=== PATIENT | female | born 1965 ===

== ENCOUNTER 2018-04-18 07:53 | Inpatient (IN) | payer BC ==
[~2018-04-18] VITALS: Ht 160 cm; Wt 54.4 kg
[2018-04-18] VITALS (9 sets, daily range): BP systolic 106–135; BP diastolic 65–82
[~2018-04-18 07:53] MED LIST: ceFAZolin 1gm in D5W 55ml IVP ONE; celeBREX 200mg Cap **SURGERY PATIENTS ONLY ORAL ONE; oxyCONTIN 20mg tab ORAL ONE
[2018-04-18] MEDS ORDERED: GABAPENTIN300 MG ORAL (08:47)
[2018-04-18] MEDS ORDERED: BLISOVI FE 1-21 EACH PO (08:47)
[2018-04-18] MEDS ORDERED: LEXAPRO10 MG ORAL (08:47)
[2018-04-18] MEDS ORDERED: celeBREX 200mg Cap **SURGERY PATIENTS ONLY ORAL ONE (09:28)
[2018-04-18] MEDS ORDERED: oxyCONTIN 20mg tab ORAL ONE (09:30)
--- NOTE | 2018-04-18 11:10 | Operative Note - PDOC ---
Operative Note Operative Note Pre-op Diagnosis: right knee medial compartment oa Procedure: see op report Post-op Diagnosis: same as pre-op plus Operative Findings: consistent w/pre-op dx studies Anesthesia: regional Specimen: none Complications: none Condition: stable Estimated Blood Loss: none Implant(s) used?: Yes Serg Rosado MD Apr 18, 2018 11:10
--- NOTE | 2018-04-18 11:10 | Pre-Procedure Note/Attestation ---
Pre-Procedure Note/Attestation Complete Prior to Procedure Planned Procedure: right Procedure Narrative: knee uka Indications for Procedure Pre-Operative Diagnosis: right knee medial compartment oa Attestation I attest that I discussed the nature of the procedure; its benefits; risks and complications; and alternatives (and the risks and benefits of such alternatives ), prior to the procedure, with the patient (or the patient's legal enrollment representative). I attest that, if there was a reasonable possibility of needing a blood transfusion, the patient (or the patient's legal enrollment representative) was given the [facility] standardized written summary, pursuant to the Fern[place] Ortiz Blood Safety Act ([place] Health and Safety Code # 1645, as amended). I attest that I re-evaluated the patient just prior to the surgery and that there has been no change in the patient's H&P, except as documented below: Serg Rosado MD Apr 18, 2018 11:10
[2018-04-18] MEDS ORDERED: oxyCODONE 5mg IR tab ORAL PRN (11:15)
[2018-04-18] MEDS ORDERED: Morphine Sulfate 2mg/ml Inj IVP PRN ×2 (11:15)
[2018-04-18] MEDS ORDERED: Milk of Magnesia 30ml Ud ORAL PRN (11:15)
[2018-04-18] MEDS: Acetaminophen 500mg (ES) tab ORAL SCH ×2 (13:00→21:46)
[2018-04-18] MEDS: Docusate 100mg cap ORAL SCH ×2 (13:00→21:45)
[2018-04-18] MEDS ORDERED: Ropivacaine 5mg/ml Vial 30ml INJ ONE (14:24)
[2018-04-18] MEDS ORDERED: Propofol 200mg/20ml IV ONE (14:25)
[2018-04-18] MEDS ORDERED: Lidocaine 1% MPF 10mg/ml 5ml ONE (14:25)
[2018-04-18] MEDS ORDERED: fentaNYL 100 mcg/2 mL IV ONE (14:34)
[2018-04-18] MEDS ORDERED: Midazolam 2mg/2ml Inj ONE (14:35)
[2018-04-18] MEDS ORDERED: Morphine Sulfate PF 10 ML ONE (14:43)
[2018-04-18] MEDS ORDERED: Kenalog-40 1ml Vial ONE (14:43)
[2018-04-18] MEDS ORDERED: EPINEPHrine 1mg/1ml Amp ONE (14:43)
[2018-04-18] MEDS ORDERED: Bupivacaine 0.25% Inj 30ml INJ ONE (14:44)
[2018-04-18] MEDS ORDERED: Bacitracin 50000 Units Vial ONE (14:44)
[2018-04-18] MEDS ORDERED: Ketorolac 30mg Inj ONE ×2 (14:44→16:39)
[2018-04-18] MEDS ORDERED: NeoSporin Gu Irrig 1ml Amp IRRIG ONE (14:44)
[2018-04-18] MEDS ORDERED: LR 1000ml ONE (15:00)
[2018-04-18] MEDS ORDERED: Sterile Water Irrig 1000ml IRRIG ONE (15:00)
[2018-04-18] MEDS ORDERED: NS Irrig 2000ml IRRIG ONE (15:00)
[2018-04-18] MEDS ORDERED: NS Irrig 1000ml ONE (15:00)
[2018-04-18] MEDS ORDERED: Duramorph PF 10mg/10ml amp IV ONE (15:28)
[2018-04-18] MEDS ORDERED: LR 1000ml 1,000 ML IVLG SCH (16:24)
--- NOTE | 2018-04-18 16:24 | Anethesia Preoperative Eval ---
Anesthesia Pre-op PMH/ROS General Date of Evaluation: Apr 18, 2018 Time of Evaluation: 14:45 Anesthesiologist: Bruce ASA Score: ASA 2 Mallampati Score Class I : Soft palate, uvula, fauces, pillars visible Class II: Soft palate, uvula, fauces visible Class III: Soft palate, base of uvula visible Class IV: Only hard plate visible Mallampati Classification: Class II Surgeon: Alonzo Diagnosis: R knee DJD Surgical Procedure: R knee arthroplasty Anesthesia History: none Social History: current smoker Family History: no anesthesia problems Allergies: Coded Allergies: SCALLOPS (Verified Adverse Reaction, Severe, "throat closses up", 04/17/18) Medications: see eMAR Past Medical History Cardiovascular: Denies: HTN, CAD, [place], valve dz, arrhythmia, other Pulmonary: Denies: asthma, COPD, OFELIA, other Gastrointestinal/Genitourinary: Reports: GERD - mild; Denies: CRI, ESRD, other Neurologic/Psychiatric: Reports: depression/anxiety; Denies: dementia, CVA, TIA, other Endocrine: Denies: DM, hypothyroidism, steroids, other HEENT: Denies: cataract (L), cataract (R), glaucoma, MOHEGAN (L), MOHEGAN (R), other Hematology/Immune: Denies: anemia, DVT, bleeding disorder, other Musculoskeletal/Integumentary: Denies: OA, RA, DJD, DDD, edema, other PMH Narrative: as above PSxH Narrative: ACL repair Anesthesia Pre-op Phys. Exam Physician Exam Last Vital Signs Date Time Temp Pulse Resp B/P (MAP) Pulse Ox O2 Delivery O2 Flow Rate FiO2 04/18/18 09:10 98.6 76 20 109/76 95 Room Air 98.6 Constitutional: NAD Neurologic: CN 2-12 intact Cardiovascular: no M/R/G Respiratory: CTA Gastrointestinal: S/NT/ND Airway Exam Mallampati Score: Class II MO: full Neck: flexible ROM: full Teeth: intact Dentures: no upper, no lower Anesthesia Pre-op A/P Labs See chart Studies Pre-op Studies: EKG - NSR Risk Assessment & Plan Assessment: ASA 2 Plan: SAB vs GA Femoral nerve block for postop pain control Status Change Before Surgery: No Pre-Antibiotics Drug: Ancef 1gr. Given Within 1 Hr of Incision: Yes Time Given: 15:58 Joseph Barrera MD Apr 18, 2018 16:24
[2018-04-18] MEDS ORDERED: DiphenhydrAMINE 50mg/ml Inj IVP PRN (16:30)
[2018-04-18] MEDS ORDERED: Tranexamic Acid 1,000 MG in NS 65 ML IVPB SCH (16:30)
[2018-04-18] MEDS ORDERED: Midazolam 2mg/2ml Inj IVP PRN (16:30)
--- NOTE | 2018-04-18 17:27 | Immediate Post-Op Evaluation ---
Immediate Post-Op Evalulation Immediate Post-Op Evalulation Procedure: R knee unicompartmental arthroplasty Date of Evaluation: Apr 18, 2018 Time of Evaluation: 17:26 IV Fluids: 1000 Blood Products: none Estimated Blood Loss: 50 Urinary Output: 150 Blood Pressure Systolic: 136 Blood Pressure Diastolic: 75 Pulse Rate: 104 Respiratory Rate: 22 O2 Sat by Pulse Oximetry: 98 Temperature (Fahrenheit): 97.6 Pain Score (1-10): 2 Nausea: No Vomiting: No Complications none Patient Status: awake, patent, none Hydration Status: adequate Joseph Barrera MD Apr 18, 2018 17:27
[2018-04-18] MEDS: Meperidine 50mg/ml Inj(FOR RIGORS ONLY) IV PRN ×2 (17:35→18:15)
--- NOTE | 2018-04-18 19:00 | Diagnostic Imaging Report ---
EXAM: XR Right Knee, 3 views CLINICAL HISTORY: POST-OP TECHNIQUE: Three views of the right knee. COMPARISON: No relevant prior studies available. FINDINGS: Bones/joints: Expected postoperative findings after right medial compartment total knee arthroplasty. No acute fracture. No dislocation. Soft tissues: Knee joint air, soft tissue swelling, and irregularity consistent with operative intervention. Other findings: No immediate complication. IMPRESSION: 1. Expected postoperative findings after right medial compartment total knee arthroplasty. 2. No immediate complication.
--- NOTE | 2018-04-18 21:38 | 48 Hour Post Anesthesia Eval ---
Post Anesthesia Evaluation Procedure: R knee unicompartmental arthroplasty Date of Evaluation: Apr 18, 2018 Time of Evaluation: 09:40 Blood Pressure Systolic: 114 0: 65 Pulse Rate: 89 Respiratory Rate: 20 Temperature (Fahrenheit): 97.3 O2 Sat by Pulse Oximetry: 98 Airway: patent Nausea: No Vomiting: No Pain Intensity: 4 Hydration Status: adequate Cardiopulmonary Status: Stable Mental Status/LOC: patient returned to baseline Follow-up Care/Observations: 0 Post-Anesthesia Complications: 0 Follow-up care needed: N/A Tristan Henry MD Apr 18, 2018 21:38
[2018-04-18] MEDS: D5 1/2NS w/KCl 20mEq 1,000 ML IV SCH (21:46)
[2018-04-18] MEDS: ceFAZolin 2gm/50ml Premix 50 ML IV SCH (23:57)
[2018-04-19] VITALS: BP 126/85
[2018-04-19] MEDS ORDERED: ceFAZolin sod 2 GM in D5W 110 ML IV SCH ×2
--- NOTE | 2018-04-19 00:15 | Operative Note - Dictated ---
DATE OF OPERATION: 04/18/2018 NOTE: POOR AUDIO PREOPERATIVE DIAGNOSIS: Right knee medial compartment end-stage osteoarthritis secondary to varus deformity. POSTOPERATIVE DIAGNOSIS: Right knee medial compartment end-stage osteoarthritis secondary to varus deformity. PROCEDURES: Right partial knee replacement (medial compartment). SURGEON: Serg Rosado M.D. ANESTHESIA: Femoral adductor with MAC. INDICATION FOR PROCEDURE: The patient is a pleasant female, who has had progressive varus deformity and end-stage medial compartment joint arthrosis. She failed conservative treatment and elected to undergo right partial knee replacement. Risks, limitations, expectations, and complications of the procedure were discussed in detail. All questions addressed. DESCRIPTION OF PROCEDURE: After informed consent was obtained, the patient was brought to the operative room and placed supine under femoral adductor block. A spinal anesthetic was placed. Hart catheter was placed. Ancef was administered. Time-out was performed. Right leg was prepped and draped in a sterile manner. A arthrotomy was performed. Distal femur was well visualized. A tibial cutting guide was then placed and proximal tibia was then resected. At this point, the knee was balanced in flexion and extension, and the distal femur was then resected. Once that was done, a sizing guide was placed and it seemed like pretty well. The chamfer cuts were then made. At this point, with a 1 mm tibial base plate was selected and placed. The cement was hard. A 9 mm was selected. Knee came out to full extension, good stability, full extension, 10 degrees of flexion and 90 degrees of flexion. Slight laxity in flexion extension. adequate size. Tibial insert was placed. Arthrotomy site was closed with #1 Vicryl suture and 2-0 Vicryl suture. The subcutaneous tissue was closed with 2-0 Vicryl suture. Skin was closed using Monocryl. Steri-Strips and a sterile dressing were applied. The patient was awoken and taken to recovery room with stable vital signs. ESTIMATED BLOOD LOSS: None. COMPLICATIONS: None. SPECIMENS: Good bone cuts. IMPLANTS: Include size 1 femoral component, size 1 tibial component, 9 mm tibial tray. Serg Rosado M.D. DR: BRETT JOB#: [id number] CC:
[2018-04-19 04:00] VITALS: BP 113/72
[2018-04-19 08:00] VITALS: BP 113/67
[2018-04-19] MEDS: ceFAZolin 2gm/50ml Premix 50 ML IV SCH (08:13)
[2018-04-19] MEDS: Docusate 100mg cap ORAL SCH ×2 (08:14→12:37)
[2018-04-19] MEDS: Acetaminophen 500mg (ES) tab ORAL SCH ×2 (08:15→12:38)
[2018-04-19] MEDS ORDERED: celeBREX 200mg Cap **SURGERY PATIENTS ONLY ORAL SCH (09:00)
[2018-04-19] MEDS: D5 1/2NS w/KCl 20mEq 1,000 ML IV SCH (10:08)
[2018-04-19 12:00] VITALS: BP 114/72
[2018-04-19] MEDS ORDERED: TRAMADOL HCL50 MG ORAL (14:19)
[2018-04-19] MEDS ORDERED: NEURONTIN100 MG ORAL (14:20)
[2018-04-19] MEDS ORDERED: ASPIRIN325 MG ORAL (14:21)
[2018-04-19] MEDS ORDERED: NAPROXEN250 MG ORAL (14:24)
--- NOTE | 2018-04-21 12:55 | Discharge Summary ---
Discharge Summary Hospital Course Date of Admission Apr 18, 2018 at 07:53 Date of Discharge Apr 19, 2018 at 15:30 Admitting Diagnosis Right knee end-stage osteoarthritis Reason for Hospitalization: Elective surgery HPI Daja Hooker is a 52 year old female who was admitted on Apr 18, 2018 at 07: 53 for Right knee end-stage osteoarthritis due to varus deformity. Patient admitted for elective surgery Procedures s/p 04/18/[address] Rosado Right partial knee replacement (medial compartment). Hospital Course s/p surgery Neurovascularly intact Dressing clean, dry and intact Pain management, pain addressed and controlled Ambulated with PT, fall precautions Incentive spirometry , while in the bed Initially IV fluids , dc when tolerated diet able to tolerate diet, antiemetics as needed F/c dc, voided freely w/out difficulties Bowel regimen instituted Discharge home with outpatient follow-up wit surgeon FINAL DIAGNOSES: Right knee medial compartment end-stage osteoarthritis secondary to varus deformity. s/p Right partial knee replacement (medial compartment). Discharge Medications Continued Medications: Aspirin* (Aspirin*) 325 Mg Tablet 325 MG ORAL DAILY for 42 Days, #42 TAB (This prescription has been renewed) Gabapentin* (Neurontin*) 100 Mg Capsule 100 MG ORAL THREE TIMES A DAY PRN for For Pain, #90 CAP 0 Refills (This prescription has been renewed) Naproxen* (Naprosyn*) 250 Mg Tablet 500 MG ORAL BID, #60 TAB 0 Refills (This prescription has been renewed) Tramadol Hcl* (Ultram*) 50 Mg Tablet 50 MG ORAL Q6H PRN for For Pain, #10 TAB 0 Refills (This prescription has been renewed) Discharge Condition Upon Discharge: stable Discharge Disposition Patient was discharged to Home () Discharge Instructions Discharge Instructions Special Instructions I have been assigned to complete a D/C Summary on this account. I was not involved in the patient management Shaina Monique NP Apr 21, 2018 12:55
== END 2018-04-19 15:30 | disposition home or self-care (01) | DRG 470 ==
LOC: SDSOVERFLO 07:53 → 3E 19:16
PROC: 0SRC0L9 Replacement of Right Knee Joint with Medial Unicondylar Synthetic Substitute, Cemented, Open Approach (ICD-10-PCS; principal; 2018-04-18 11:15)
DX: M17.11 Unilateral primary osteoarthritis, right knee (principal); G47.00 Insomnia, unspecified; B02.9 Zoster without complications; R73.03 Prediabetes; F17.200 Nicotine dependence, unspecified, uncomplicated
CPT/HCPCS: 36415; 86850; 86900; 86901; 87081; 94003; 94150; J2250; J2405